=== PATIENT | male | born 1965 | race African-American/Black ===

== ENCOUNTER → 2020-04-19 15:34 | Outpatient (CLI) | payer BC, SELFPAY ==
[2020-04-19 17:29] LABS: Prostate Specific Ag, Diagnost < 0.064 ng/ml (0.0-4.0)
== END ==
PROVIDERS: Visit Provider Urology
DX: C61 Malignant neoplasm of prostate (principal)
CPT/HCPCS: 36415; 84153

== ENCOUNTER → 2020-06-08 14:51 | Outpatient (CLI) | payer BC, SELFPAY ==
--- NOTE | 2020-06-08 14:57 | CT_ITS ---
PROCEDURE: CT ABDOMEN PELVIS WO CON CLINICAL INDICATION: hematuria COMPARISON: No exams were available for comparison TECHNIQUE: Axial images obtained with sagittal and coronal reformats. All CT scans at the facility use one or more dose reduction, viz: automated exposure control, ma/kV adjustment per patient size (including targeted exams where dose is matched to indication, i.e. head), or iterative reconstruction technique. FINDINGS: LOWER THORAX: No acute finding ABDOMEN & PELVIS: There are scattered small hypodensities of the liver nonspecific and may be due to small hepatic cyst. The the spleen and pancreas have an unremarkable appearance. Cortical scarring is present involving the right kidney superiorly. No renal or ureteral calculi. There are bilateral adrenal nodules present and may be due to adenomas. The right adrenal nodule measures 1.7 cm and has a density of -14 Hounsfield units. Left adrenal nodule is 2 cm and has a density -14 Hounsfield units. No evidence of appendicitis. Scattered colonic diverticular present. No evidence of diverticulitis. No intestinal obstruction or free air. Prostate seed implants are present. No acute bony finding. IMPRESSION: No acute finding Dictated by: Levi Chan MD 06/08/2020 15:36 Levi Chan MD in [facility] 06/08/2020 15:36
== END ==
PROVIDERS: PCP Family Medicine; Visit Provider Urology
DX: R31.9 Hematuria, unspecified (principal)
CPT/HCPCS: 74176

== ENCOUNTER → 2020-06-12 10:52 | Outpatient (CLI) | payer BC, SELFPAY ==
[2020-06-12 12:41] LABS: Coronavirus 19 IgG Antibody Negative (Negative); Coronavirus 19 IgM Antibody Negative (Negative)
== END ==
PROVIDERS: Visit Provider Urology
DX: Z01.812 Encounter for preprocedural laboratory examination (principal); Z11.52 Encounter for screening for COVID-19; C61 Malignant neoplasm of prostate
CPT/HCPCS: 36415; 86328

== ENCOUNTER 2020-06-14 09:12 | Day surgery (SDC) | payer BC, SELFPAY ==
[2020-06-09 10:49] VITALS: BMI 31.1
[2020-06-14 09:23] VITALS: BP 148/85; PULSE 74; RESP 18; TEMP 36.5; O2SAT 97
[2020-06-14 10:12] VITALS: BP 145/86; PULSE 71; RESP 16; TEMP 36.4; O2SAT 100
--- NOTE | 2020-06-14 10:55 | [facility].OPNOTE ---
Date of procedure: 06/14/20 Pre-op Diagnosis:: Gross hematuria Post-op Diagnosis:: Same Procedure performed:: Cystourethroscopy Surgeon:: Ross Malloy MD Anesthesia: local Estimated blood loss (mL): 0 Clinical Note:: Patient is a 54-year-old white male with a history of prostate cancer with a recent 1 day history of gross hematuria. States he noticed the blood throughout the stream for several voids that lasted only [address] scan was ordered and reviewed. There is no evidence of any stones, masses or other urologic abnormalities. Operative findings:: Bladder was normal. Prostate was enlarged. Operative note:: Patient taken to the cystoscopy suite after informed consent was obtained. On the stretcher he was prepped and draped in the standard surgical fashion and 2% lidocaine placed into the urethra. Urethra was clamped for 5 minutes. For 5 minutes had elapsed flexible scope was passed into the urethral meatus and passed to the bulbar urethra where some stenosis was noted. The scope was able to be passed by the stenotic area with minimal difficulty. Prostate was visualized and showed some moderate hyperplasia but no evidence of any bleeding nidus. The bladder was entered and examined in a systematic fashion. There was no evidence of mucosal changes, bladder tumors, stones, diverticula or trabeculation. The scope was retroflexed showing a little erythema at the bladder neck and associated with a small median lobe. Scope then removed. Patient tolerated the procedure well and there are no complications. We discussed the findings today and I think the bleeding was likely from a prostatic origin. We discussed finasteride if it persists he will let me know if he has any further blood in his urine. Condition: stable Disposition: same day Specimens:: None Complications:: None
== END 2020-06-14 10:20 | disposition home or self-care (01) ==
LOC: OUTP 09:13
PROVIDERS: PCP Family Medicine; Visit Provider Urology
PROC: (CPT 52000; principal; 2020-06-14 10:00)
DX: R31.0 Gross hematuria (principal); N40.0 Benign prostatic hyperplasia without lower urinary tract symptoms; Z85.46 Personal history of malignant neoplasm of prostate; I10 Essential (primary) hypertension; Z79.899 Other long term (current) drug therapy
CPT/HCPCS: 52000